=== PATIENT | female | born 1990 | race Caucasian/White ===

== ENCOUNTER 2018-06-20 07:18 | Outpatient (CLI) | payer OTHER | END 2018-06-20 07:25 | disposition home or self-care (01) | LOC: LAB 07:18 | DX: I67.6 Nonpyogenic thrombosis of intracranial venous system (principal) ==

== ENCOUNTER 2021-06-25 10:24 | Outpatient (CLI) | payer OTHER | END 2021-07-01 09:41 | disposition home or self-care (01) | LOC: SONOGRAMA 10:24 | PROVIDERS: ATTEND Obstetrics & Gynecology | DX: N64.51 Induration of breast (principal) ==